=== PATIENT | male | born 2000 | race Caucasian/White ===

== ENCOUNTER 2023-12-11 19:43 | Outpatient (CLI) | payer BC, SELFPAY ==
[2023-12-11 23:06] LABS: Chlamydia DNA Amplified* NOT DETECTED (No Detected); GC DNA Amplified* NOT DETECTED (No Detected)
== END 2023-12-11 19:44 | disposition home or self-care (01) ==
PROVIDERS: Visit Provider Nurse Practitioner Family
DX: N50.819 Testicular pain, unspecified (principal)
CPT/HCPCS: 87086; 87491; 87591